=== PATIENT | male | born 1955 | race Asian ===

== ENCOUNTER 2023-06-23 23:48 | Observation (INO) ==
[2023-06-24 00:33] LABS: ABS Basophils 0.2 10^3/uL (0.0-0.1); ABS Eosinophils 0.3 10^3/uL (0.0-0.5); ABS Lymphocytes 1.8 10^3/uL (1.0-4.8); ABS Neutrophils 18.8 10^3/uL (1.5-7.6); ABS Nucleated RBC 0.08 10^3/ul; Eosinophil % 1.3 %; Hemoglobin 19.1 g/dL (13.2-16.3); Lymphocyte % 8.2 %; Mean Corpuscular Hemoglobin 26.9 pg (27-33); Mean Corpuscular Hgb Conc 31.8 g/dL (31-36); Mean Corpuscular Volume 84.6 fL (80-97); Mean Platelet Volume 9.5 fL (7.5-11.2); Nucleated Red Blood Cells % 0.3 %/100WBC (0.0-0.8); Platelet Count 238 10^3/uL (150-450); Red Blood Count 7.09 10^6/uL (4.06-5.63); Red Cell Distribution Width 19.8 % (12-17)
[2023-06-24] MEDS ORDERED: Albuterol/Ipratropium NEB.SOL (2.5/0.5 MG) 3 ML NEB.SOLN INH ONE (00:41)
[2023-06-24 01:15] LABS: Urine Appearance Clear; Urine Bilirubin Negative (Negative); Urine Blood Negative (Negative); Urine Color Yellow; Urine Glucose 3+(>=500 mg/dL) (Negative); Urine Ketones Negative (Negative); Urine Nitrite Negative (Negative); Urine Protein 2+(100 mg/dL) (Negative); Urine Specific Gravity 1.012 (1.002-1.030); Urine Urobilinogen Negative (Negative)
[2023-06-24 01:35] LABS: Urine Bacteria Absent (Absent); Urine Red Blood Cell Absent (Absent); Urine White Blood Cell Trace(0-5/hpf) (Absent)
[2023-06-24 01:45] LABS: Potassium 4.2 mmol/L (3.5-5.0)
[2023-06-24 01:46] LABS: Albumin 4.6 g/dL (3.2-5.2); Albumin/Globulin Ratio 1.1 (1-3); C Reactive Protein 10.36 mg/L (<8.01); Calcium 10.3 mg/dL (8.6-10.3); Globulin 4.1 g/dL (2-4); Total Bilirubin 0.9 mg/dL (0.2-1.0); Total Protein 8.7 g/dL (6.4-8.9)
[2023-06-24 02:04] LABS: Creatinine, Serum 2.3 mg/dL (0.67-1.17); eGFR CKD-EPI 30.4 (>60)
[2023-06-24 02:17] LABS: High Sensitivity Troponin 1 Hr 29 pg/mL (<20)
[2023-06-24] MEDS ORDERED: Iodixanol (CONTRAST) 320 MG/ML 100 ML SDV IV ONE (03:29)
[2023-06-24] MEDS ORDERED: Furosemide 40 mg/4 ml IV VIAL IV SLOW PU ONE (05:23)
[2023-06-24] MEDS ORDERED: Dextrose 50% Syringe 50 ml 25 GM/50 ML SYRINGE IV PUSH PRN (06:45)
[2023-06-24 07:01] LABS: Erythrocyte Sed Rate 4 mm/Hr (0-19)
[2023-06-24] MEDS: Empagliflozin 25 MG TAB PO SCH (08:30)
[2023-06-24] MEDS ORDERED: Epleronone 25 mg TAB (NF) PO SCH (09:00)
[2023-06-24] MEDS ORDERED: Sulfur Hexaflouride MICROSPHR 25 MG VIAL ONE (09:12)
[2023-06-24] MEDS ORDERED: Azithromycin 500 mg/250 ml NS 500 MG/250 ML BAG IVPB SCH (11:00)
[2023-06-24] MEDS ORDERED: cefTRIAXone 1 gm/50 mL D5W 1 GM/50 ML BAG IV SCH (11:00)
[2023-06-24] MEDS: Enoxaparin 30 MG/0.3 ML SYR SUBCUT SCH (11:35)
[2023-06-24] MEDS ORDERED: Bumetanide IV 0.25 MG/ML 4 ml VIAL (1 mg) IV SLOW PU SCH (12:00)
[2023-06-24 12:14] LABS: Anion Gap 8 mmol/L (2-16); Blood Urea Nitrogen 44 mg/dL (6-24); CO2 Carbon Dioxide 28 mmol/L (22-32); Calcium 9.9 mg/dL (8.6-10.3); Chloride 98 mmol/L (101-111); Creatinine, Serum 2.27 mg/dL (0.67-1.17); Glucose 221 mg/dL (70-100); Sodium 134 mmol/L (135-145); eGFR CKD-EPI 30.8 (>60)
[2023-06-24] MEDS: Bumetanide IV 0.25 MG/ML 4 ml VIAL (1 mg) IV SLOW PU SCH (14:26)
[2023-06-25 07:55] LABS: ABS Basophils 0.1 10^3/uL (0.0-0.1); ABS Eosinophils 0.4 10^3/uL (0.0-0.5); ABS Lymphocytes 1.9 10^3/uL (1.0-4.8); ABS Monocytes 0.6 10^3/uL (0.0-1.1); ABS Neutrophils 7.2 10^3/uL (1.5-7.6); ABS Nucleated RBC 0.03 10^3/ul; Hemoglobin 17.2 g/dL (13.2-16.3); Lymphocyte % 18.5 %; Mean Corpuscular Hemoglobin 27.5 pg (27-33); Mean Corpuscular Hgb Conc 32.5 g/dL (31-36); Mean Corpuscular Volume 84.8 fL (80-97); Mean Platelet Volume 9.4 fL (7.5-11.2); Nucleated Red Blood Cells % 0.3 %/100WBC (0.0-0.8); Platelet Count 160 10^3/uL (150-450); Red Blood Count 6.25 10^6/uL (4.06-5.63); Red Cell Distribution Width 19.9 % (12-17); White Blood Count 10.2 10^3/uL (3.6-10.2)
[2023-06-25] MEDS: Enoxaparin 30 MG/0.3 ML SYR SUBCUT SCH (08:33)
[2023-06-25] MEDS: Bumetanide IV 0.25 MG/ML 4 ml VIAL (1 mg) IV SLOW PU SCH (08:35)
[2023-06-25] MEDS: Empagliflozin 25 MG TAB PO SCH (08:37)
[2023-06-25 09:07] LABS: Creatinine, Serum 2.14 mg/dL (0.67-1.17); Magnesium 2.9 mg/dL (1.9-2.7); Potassium 4.3 mmol/L (3.5-5.0); eGFR CKD-EPI 33.1 (>60)
[2023-06-25] MEDS: Azithromycin 500 mg/250 ml NS 500 MG/250 ML BAG IVPB SCH (11:36)
[2023-06-25] MEDS: cefTRIAXone 1 gm/50 mL D5W 1 GM/50 ML BAG IV SCH (15:43)
[2023-06-26 06:44] LABS: ABS Basophils 0.1 10^3/uL (0.0-0.1); ABS Eosinophils 0.4 10^3/uL (0.0-0.5); ABS Lymphocytes 1.7 10^3/uL (1.0-4.8); ABS Monocytes 0.5 10^3/uL (0.0-1.1); ABS Neutrophils 6.3 10^3/uL (1.5-7.6); ABS Nucleated RBC 0.03 10^3/ul; Eosinophil % 4.6 %; Hematocrit 51.5 % (38-53); Hemoglobin 16.9 g/dL (13.2-16.3); Lymphocyte % 18.9 %; Mean Corpuscular Hemoglobin 27.6 pg (27-33); Mean Corpuscular Hgb Conc 32.8 g/dL (31-36); Mean Corpuscular Volume 84.1 fL (80-97); Mean Platelet Volume 9.5 fL (7.5-11.2); Nucleated Red Blood Cells % 0.3 %/100WBC (0.0-0.8); Platelet Count 157 10^3/uL (150-450); Red Blood Count 6.12 10^6/uL (4.06-5.63); Red Cell Distribution Width 19.8 % (12-17)
[2023-06-26 07:13] LABS: Creatinine, Serum 1.98 mg/dL (0.67-1.17); Magnesium 2.9 mg/dL (1.9-2.7); Potassium 4.5 mmol/L (3.5-5.0); eGFR CKD-EPI 36.3 (>60)
[2023-06-26] MEDS ORDERED: Bumetanide IV 0.25 MG/ML 4 ml VIAL (1 mg) IV SLOW PU SCH (09:00)
[2023-06-26] MEDS: Empagliflozin 25 MG TAB PO SCH (09:32)
[2023-06-26] MEDS: Enoxaparin 30 MG/0.3 ML SYR SUBCUT SCH (09:33)
[2023-06-26] MEDS: Azithromycin 500 mg/250 ml NS 500 MG/250 ML BAG IVPB SCH (11:07)
[2023-06-26] MEDS: cefTRIAXone 1 gm/50 mL D5W 1 GM/50 ML BAG IV SCH (12:31)
[2023-06-27] MEDS: Empagliflozin 25 MG TAB PO SCH (08:09)
[2023-06-27] MEDS: Enoxaparin 30 MG/0.3 ML SYR SUBCUT SCH (08:12)
[2023-06-27] MEDS: cefTRIAXone 1 gm/50 mL D5W 1 GM/50 ML BAG IV SCH (11:50)
[2023-06-27 14:50] VITALS: BP 112/87
== END 2023-06-27 17:22 | disposition home or self-care (01) ==
LOC: ED 23:48 → EDHOLD 23:48 → SUATTDRO 06-24 06:05 → MEDTELE 06-24 17:07
PROVIDERS: ADMIT Student in an Organized Health Care Education/Training Program; ATTEND Hospitalist